=== PATIENT | female | born 1970 | race Caucasian/White ===

== ENCOUNTER → 2016-09-30 | Outpatient (CLI) | payer BC ==
--- NOTE | 2016-09-30 17:12 | CR ---
EXAMINATION: Right knee HISTORY: Pain COMPARISON: None TECHNIQUE: 4 views FINDINGS/IMPRESSION: There is no acute osseous abnormality, dislocation, or fracture identified. Bon e mineralization appears normal. There is likely a trace suprapatellar joint effusion.
== END ==
LOC: MW.CHORTHO 07:58
PROVIDERS: ATTEND Physician Assistant
DX: M25.561 Pain in right knee (principal)
CPT/HCPCS: 73564-26-RT; 73564-RT

== ENCOUNTER → 2016-10-08 | Outpatient (CLI) | payer BC ==
[2016-10-08 11:23] LABS: CHLORIDE,CL 107 mmol/L (98-110); SODIUM,NA 139 mmol/L (136-146)
--- NOTE | 2016-10-08 16:26 | MY ---
EXAMINATION: Bilateral digital mammography utilizing CAD. HISTORY: Screening exam. Comparison is made to previous studies dated 10/01/2015, 08/02/2014. FINDINGS: Bilateral heterogeneously dense breast tissue. No suspicious calcifications, masses or architectural distortions. No pathologic appearing lymph nodes, no abnormal skin thickening or nipple inversion. CAD highlighted regions appear normal at this time. IMPRESSION: BI-RADS category I - negative mammogram. Continued screening according to ACR-ACS guidelines sugg edith. THE FALSE-NEGATIVE RATE OF MAMMOGRAM IS APPROXIMATELY 10%. MANAGEMENT OF A PALPABLE ABNORMALITY MUST BE BASED UPON CLINICAL GROUNDS. SENSITIVITY FOR DETECTION OF ABNORMALITIES IN DENSE BREASTS IS LOW. NOTE: A letter will be sent to the patient regarding findings. [facility] -- DONALDO Goff [phone] - FAX [phone]
[2016-10-17 16:04] LABS: HPV 16 Not Detected (NOTDET); HPV 18 Not Detected (NOTDET)
== END ==
LOC: MW.MAM 11:03
PROVIDERS: ATTEND Nurse Practitioner Women's Health
DX: Z12.31 Encounter for screening mammogram for malignant neoplasm of breast (principal)
CPT/HCPCS: 36415; 80053; 80061; 81001; 83036; 84443; 85025; 86140; 87624; G0145; G0202; G0202-26

== ENCOUNTER 2017-05-29 21:21 | Inpatient (IN) | payer BC ==
--- NOTE | 2017-05-29 21:38 | EDM.PDOC ---
ED HPI GENERAL MEDICAL PROBLEM - General Stated Complaint: ABDOMINAL PAIN Time Seen by Provider: 05/29/17 21:38 Source of Information: Reports: Patient, Family History Limitations: Reports: No Limitations - History of Present Illness INITIAL COMMENTS - FREE TEXT/NARRATIVE: History of present illness: [47 yr old female comes in complaining of abdominal and back pain. Patient indicates she thinks it's a kidney stone as she has a history of these.] Review of systems: As per history of present illness and below otherwise all systems reviewed and negative. Past medical history: As per history of present illness and as reviewed below otherwise noncontributory. Surgical history: As per history of present illness and as reviewed below otherwise noncontributory. Social history: No reported history of drug or alcohol abuse. Family history: As per history of present illness and as reviewed below otherwise noncontributory. Physical exam: HEENT: Atraumatic, normocephalic, pupils reactive, negative for conjunctival pallor or scleral icterus, mucous membranes moist, throat clear, neck supple, nontender, trachea midline. Lungs: Clear to auscultation, breath sounds equal bilaterally, chest nontender. Heart: S1S2, regular, negative for clicks, rubs, or JVD. Abdomen: Soft, nondistended, diffuse non specific tenderness.. Negative for masses or hepatosplenomegaly. Positve for bilateral costovertebral tenderness. Pelvis: Stable nontender. Genitourinary: Deferred. Rectal: Deferred. Extremities: Atraumatic, negative for cords or calf pain. Neurovascular unremarkable. Neuro: Awake, alert, oriented. Cranial nerves II through XII unremarkable. Cerebellum unremarkable. Motor and sensory unremarkable throughout. Exam nonfocal. Patient has a significant leukocytosis per laboratory continues to have a significant amount of abdominal and back pain. Dr. Cristobal Navarro called and discussed the case decision made to admit patient for IV therapy, pain control and observation. For pyelonephritis. Diagnostics: [CBC, CMP, amylase, lipase, CT of abdomen and pelvis] Therapeutics: [IV fluid, morphine, Zofran] Impression: [Pylonephritis] Plan: [Admit to observation, IV therapy, pyelonephritis] Definitive disposition and diagnosis as appropriate pending reevaluation and review of above. Bilateral Flank Pain Score (Numeric/FACES): 8 - Related Data Allergies Allergy/AdvReac Type Severity Reaction Status Date / Time latex Allergy Itching Verified 05/29/17 21:41 Latex, Natural Rubber Allergy Itching Verified 05/29/17 21:41 Home Meds: Home Meds . [No Known Home Meds] 05/29/17 [History] Past Medical History - Past Health History Medical/Surgical History: Denies Medical/Surgical History Endocrine/Metabolic History: Reports: Diabetes, Gestational Social & Family History - Tobacco Use Smoking Status *Q: Never Smoker Second Hand Smoke Exposure: No - Alcohol Use Days Per Week of Alcohol Use: 0 - Recreational Drug Use Recreational Drug Use: No ED ROS GENERAL - Review of Systems Review Of Systems: See Below (See history of present illness) ED EXAM, GENERAL - Physical Exam Exam: See Below (History of present illness) Course - Vital Signs Last Recorded V/S: Last Vital Signs Temp 38.1 C 05/29/17 21:31 Pulse 103 H 05/29/17 21:31 Resp 18 05/29/17 21:31 BP 155/91 H 05/29/17 21:31 Pulse Ox 100 05/29/17 21:31 - Orders/Labs/Meds Orders: Active Orders 24 hr Category Date Time Status Abdomen Pelvis wo Cont [CT] Stat Exams 05/29/17 21:40 Taken CULTURE BLOOD [BC] Stat Lab 05/29/17 22:39 Received CULTURE BLOOD [BC] Stat Lab 05/29/17 22:43 Received UA W/MICROSCOPIC [URIN] Stat Lab 05/29/17 22:55 Uncollected Ciprofloxacin in D5W [Cipro in D5W 400 MG/200 ML] 400 Med 05/29/17 23:15 Ordered mg Premix Bag 1 bag IV Q12H Sodium Chloride 0.9% [Normal Saline] 1,000 ml Med 05/29/17 22:28 Active IV STAT Blood Culture x2 Reflex Set [OM.PC] Stat Oth 05/29/17 22:28 Ordered Medication Orders Sodium Chloride (Normal Saline) 1,000 mls @ 999 mls/hr IV STAT ONE Stop: 05/29/17 23:28 Last Admin: 05/29/17 23:03 Dose: 999 mls/hr Labs: Laboratory Tests 05/29/17 05/29/17 05/29/17 Range/Units 21:54 21:54 22:43 WBC 19.12 H (4.0-11.0) K/uL RBC 4.53 (4.30-5.90) M/uL Hgb 13.3 (12.0-16.0) g/dL Hct 40.1 (36.0-46.0) % MCV 88.5 (80.0-98.0) fL MCH 29.4 (27.0-32.0) pg MCHC 33.2 (31.0-37.0) g/dL RDW Std Deviation 48.1 (28.0-62.0) fl RDW Coeff of Aura 15 (11.0-15.0) % Plt Count 235 (150-400) K/uL MPV 10.80 (7.40-12.00) fL Neut % (Auto) 81.1 H (48.0-80.0) % Lymph % (Auto) 12.8 L (16.0-40.0) % [place] % (Auto) 5.6 (0.0-15.0) % Eos % (Auto) 0.2 (0.0-7.0) % Baso % (Auto) 0.3 (0.0-1.5) % Neut # (Auto) 15.5 H (1.4-5.7) K/uL Lymph # (Auto) 2.5 H (0.6-2.4) K/uL [place] # (Auto) 1.1 H (0.0-0.8) K/uL Eos # (Auto) 0.0 (0.0-0.7) K/uL Baso # (Auto) 0.1 (0.0-0.1) K/uL Nucleated RBC % 0.0 /100WBC Nucleated RBCs # 0 K/uL Lactate 1.3 (0.20-2.00) mmol/L Sodium 137 (136-146) mmol/L Potassium 3.7 (3.5-5.1) mmol/L Chloride 106 (98-110) mmol/L Carbon Dioxide 21 (21-31) mmol/L BUN 20 (6.0-23.0) mg/dL Creatinine 1.0 (0.6-1.5) mg/dL Est Cr Clr Drug Dosing 58.15 mL/min Estimated GFR (MDRD) 59.7 ml/min Glucose 103 (60-110) mg/dL Calcium 8.7 L (8.8-10.8) mg/dL Total Bilirubin 0.3 (0.1-1.5) mg/dL AST 20 (5-40) IU/L ALT 19 (8-54) IU/L Alkaline Phosphatase 84 (40-150) Total Protein 7.3 (6.0-8.0) g/dL Albumin 4.0 (3.5-5.0) g/dL Globulin 3.3 (2.0-3.5) g/dL Albumin/Globulin Ratio 1.2 L (1.3-2.8) Meds: Medications Generic Name Dose Route Start Last Admin Trade Name Freq PRN Reason Stop Dose Admin Sodium Chloride 1,000 mls @ 999 mls/hr 05/29/17 22:28 05/29/17 23:03 Normal Saline IV 05/29/17 23:28 999 mls/hr STAT ONE Administration Discontinued Medications Generic Name Dose Route Start Last Admin Trade Name Freq PRN Reason Stop Dose Admin Morphine Sulfate 4 mg 05/29/17 22:36 05/29/17 23:03 Morphine IVPUSH 05/29/17 22:37 4 mg ONETIME ONE Administration Ondansetron HCl 4 mg 05/29/17 22:36 05/29/17 23:03 Zofran IVPUSH 05/29/17 22:37 4 mg ONETIME ONE Administration Departure - Departure Time of Disposition: 23:09 Disposition: Refer to Observation Condition: Good Clinical Impression: Elevated white blood cell count, Pyelonephritis - Discharge Information Referrals: PCP,Unknown [Primary Care Provider] - - My Orders Last 24 Hours: My Active Orders 05/29/17 21:40 Abdomen Pelvis wo Cont [CT] Stat 05/29/17 22:28 Sodium Chloride 0.9% [Normal Saline] 1,000 ml IV STAT Blood Culture x2 Reflex Set [OM.PC] Stat 05/29/17 22:39 CULTURE BLOOD [BC] Stat 05/29/17 22:43 CULTURE BLOOD [BC] Stat 05/29/17 22:55 UA W/MICROSCOPIC [URIN] Stat 05/29/17 23:15 Ciprofloxacin in D5W [Cipro in D5W 400 MG/200 ML] 400 mg Premix Bag 1 bag IV Q12H - Assessment/Plan Last 24 Hours: My Active Orders 05/29/17 21:40 Abdomen Pelvis wo Cont [CT] Stat 05/29/17 22:28 Sodium Chloride 0.9% [Normal Saline] 1,000 ml IV STAT Blood Culture x2 Reflex Set [OM.PC] Stat 05/29/17 22:39 CULTURE BLOOD [BC] Stat 05/29/17 22:43 CULTURE BLOOD [BC] Stat 05/29/17 22:55 UA W/MICROSCOPIC [URIN] Stat 05/29/17 23:15 Ciprofloxacin in D5W [Cipro in D5W 400 MG/200 ML] 400 mg Premix Bag 1 bag IV Q12H
[2017-05-29] MEDS ORDERED: Sodium Chloride 0.9% 1,000 ML IV ONE (22:28)
[2017-05-29] MEDS ORDERED: Ondansetron 4 MG/2 ML SDV IVPUSH ONE (22:36)
[2017-05-29] MEDS ORDERED: Morphine 4 MG/ML Syringe IVPUSH ONE (22:36)
[2017-05-29] MEDS: Ciprofloxacin in D5W 400 MG in Premix Bag 1 BAG IV SCH ×2 (23:40)
[2017-05-30] MEDS ORDERED: FLU Vacc QS 2017-18 (36mos UP)/PF 60 MCG/0.5 ML Syringe IM ONE (00:30)
[2017-05-30] MEDS ORDERED: Ondansetron 4 MG Tab PO PRN (01:07)
[2017-05-30] MEDS: Sodium Chloride 0.9% 1,000 ML IV SCH ×3 (01:38→21:39)
[2017-05-30] MEDS: Acetaminophen 325 MG Tab PO PRN ×2 (03:41→10:43)
--- NOTE | 2017-05-30 06:43 | PCM.HP ---
H&P History of Present Illness - General Date of Service: 05/30/17 Admit Problem/Dx: pyelonephritis - History of Present Illness Initial Comments - Free Text/Narative: 47-year-old female presenting to emergency department with chief complaint of left back pain with no significant past medical history. Patient states that she has had back pain for several days and on day of admission states that she was having some nausea with low-grade fevers of 101. She has a history of kidney stones and thought that it may be secondary to this. States that the pain is constant mostly located on the left lower back with some radiation to the suprapubic area. As above, she has had some nausea without vomiting. She denies any chest pain, palpitations, shortness breath, syncopal episodes, or focal neurologic episodes. In the emergency department she was found to have leukocytosis of 19,000, unremarkable lactate and CMP. Urine positive for UTI, and CT abdomen and pelvis showing no renal stones or hydronephrosis. There was some subtle edema about the left kidney and renal collecting system suggesting possible pyelonephritis. Blood cultures were obtained. Patient admitted for suspected pyelonephritis. Bilateral Flank Pain Score (Numeric/FACES): 0 - Related Data Allergies/Adverse Reactions: Allergies Allergy/AdvReac Type Severity Reaction Status Date / Time latex Allergy Itching Verified 05/29/17 21:41 Latex, Natural Rubber Allergy Itching Verified 05/29/17 21:41 Home Medications: Home Meds . 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 Denies: Weakness, Fatigue HEENT: Denies: Headaches, Sore Throat, Visual Changes Pulmonary: Denies: Shortness of Breath, Wheezing, Cough Cardiovascular: Denies: Chest Pain, Palpitations, Edema Gastrointestinal: Reports: Abdominal Pain, Nausea, Vomiting. Denies: Black Stool, Bloody Stool, Distension Genitourinary: Reports: Dysuria, Pain, Flank Pain. Denies: Hematuria Musculoskeletal: Denies: Neck Pain, Leg Pain Skin: Denies: Cyanosis Psychiatric: Denies: Confusion Neurological: Denies: Confusion, Dizziness, Headache Hematologic/Lymphatic: Denies: Anemia Exam - Exam Exam: See Below - Vital Signs Vital Signs: Last Vital Signs Temp 99.1 F 05/29/17 23:42 Pulse 84 05/29/17 23:42 Resp 17 05/29/17 23:42 BP 144/82 H 05/29/17 23:42 Pulse Ox 97 05/29/17 23:42 Weight: 65.68 kg - Exam Quality Assessment: DVT Prophylaxis General: Alert, Oriented, Cooperative HEENT: Conjunctiva Clear, EACs Clear, EOMI, Hearing Intact, Mucosa Moist & [place] , Nares Patent, Normal Nasal Septum, Posterior Pharynx Clear, PERRLA Neck: Supple, Trachea Midline, 2 Lungs: Clear to Auscultation, Normal Respiratory Effort Cardiovascular: Regular Rate, Regular Rhythm, Normal S1, Normal S2 GI/Abdominal Exam: Normal Bowel Sounds, Soft, Non-Tender, No Organomegaly, No Distention Back Exam: CVA Tenderness (L) Extremities: Normal Inspection, Non-Tender, No Pedal Edema, Normal Capillary Refill Peripheral Pulses: 2+: Radial (L), Radial (R), Posterior Tibial (L), Posterior Tibial (R), Dorsalis Pedis (L), Dorsalis Pedis (R) Skin: Warm, Dry, Intact Neurological: Cranial Nerves Intact Neuro Extensive - Mental Status: Alert, Oriented x3, Normal Mood/Affect, Normal Cognition Neuro Extensive - Motor, Sensory, Reflexes: CN II-XII Intact Psychiatric: Alert, Normal Affect, Normal Mood - Patient Data Result Diagrams: 05/30/17 06:35 05/29/17 21:54 *Q Meaningful Use (ADM) - VTE *Q VTE Criteria *Q: - Stroke *Q Stroke Criteria *Q: - AMI *Q AMI Criteria *Q: - Problem List (1) Elevated white blood cell count SNOMED Code(s): 819716110 ICD Code: D72.829 - ELEVATED WHITE BLOOD CELL COUNT, UNSPECIFIED Status: Acute Priority: High Current Visit: Yes Qualifiers: Leukocytosis type: unspecified Qualified Code(s): D72.829 - Elevated white blood cell count, unspecified (2) Pyelonephritis SNOMED Code(s): 98674708 ICD Code: N12 - TUBULO-INTERSTITIAL NEPHRITIS, NOT SPCF ACUTE OR CHRONIC Status: Acute Priority: High Current Visit: Yes Problem List Initiated/Reviewed/Updated: Yes Orders Last 24hrs: Active Orders 24 hr Category Date Time Status Patient Status [ADT] Routine ADT 05/30/17 00:00 Active Regular Diet [DIET] Diet 05/30/17 Breakfast Active CBC WITH AUTO DIFF [HEME] Routine Lab 05/30/17 05:00 Ordered CMP [COMPREHENSIVE METABOLIC PN,CMP] [CHEM] Routine Lab 05/30/17 05:00 Ordered Acetaminophen [Tylenol] Med 05/30/17 01:06 Active 650 mg PO Q6H PRN Ondansetron [Zofran] Med 05/30/17 01:07 Active 4 mg PO Q4H PRN Sodium Chloride 0.9% [Normal Saline] 1,000 ml Med 05/30/17 01:15 Active IV ASDIRECTED Medication Orders Acetaminophen (Tylenol) 650 mg PO Q6H PRN PRN Reason: Pain/Fever Last Admin: 05/30/17 03:41 Dose: 650 mg Ciprofloxacin/Dextrose 400 mg/ (Premix) 200 mls @ 200 mls/hr IV Q12H [facility] Last Admin: 05/29/17 23:40 Dose: 200 mls/hr Sodium Chloride (Normal Saline) 1,000 mls @ 125 mls/hr IV ASDIRECTED [facility] Last Admin: 05/30/17 01:38 Dose: 125 mls/hr Ondansetron HCl (Zofran) 4 mg PO Q4H PRN PRN Reason: Nausea/Vomiting Assessment/Plan Comment:: 47-year-old female admitted 05/30/17 for suspected pyelonephritis with no significant past medical history. Pyelonephritis: Patient was started on ciprofloxacin in the emergency department we will continue this. Monitor leukocytosis 19k on admission. No fever. Will get renal ultrasound to confirm pyelonephritis. No stones seen on CT the patient does have history of renal calculi. Urine positive for UTI. Culture sent. Blood cultures collected in ED. VTE: Lovenox, SCD Dispo: 1-2 days pending.
[2017-05-30] MEDS ORDERED: Acetaminophen/HYDROcodone 325-5 MG Tab PO PRN (07:21)
[2017-05-30] MEDS ORDERED: Temazepam 15 MG Cap PO PRN (07:21)
[2017-05-30] MEDS ORDERED: Ondansetron 4 MG Tab.DIS PO PRN (07:21)
[2017-05-30 07:30] LABS: CHLORIDE,CL 107 mmol/L (98-110); SODIUM,NA 137 mmol/L (136-146)
[2017-05-30] MEDS: Enoxaparin 40 MG/0.4 ML Syringe SUBCUT SCH (10:30)
[2017-05-30] MEDS: Ciprofloxacin in D5W 400 MG in Premix Bag 1 BAG IV SCH ×4 (10:30→23:40)
[2017-05-31 05:23] LABS: CHLORIDE,CL 109 mmol/L (98-110); SODIUM,NA 139 mmol/L (136-146)
[2017-05-31] MEDS: Sodium Chloride 0.9% 1,000 ML IV SCH (06:46)
--- NOTE | 2017-05-31 08:14 | PCM.DCSUM1 ---
Discharge Summary - Hospital Course HPI Initial Comments: 47-year-old female admitted 05/30/17 for pyelonephritis with history of renal calculi. Brief History: Patient initially stated that she had back pain for several days and on day of admission stated that she was having some nausea with low-grade fevers of 101. She has a history of kidney stones and thought that it may be secondary to this. Stated that the pain was constant mostly located on the left lower back with some radiation to the suprapubic area. As above, had some nausea without vomiting. She denied any chest pain, palpitations, shortness breath, syncopal episodes, or focal neurologic episodes. - Discharge Data Discharge Date: 05/31/17 Discharge Disposition: Home, Self-Care 01 Condition: Good - Discharge Diagnosis/Problem(s) (1) Elevated white blood cell count SNOMED Code(s): 782449907 ICD Code: D72.829 - ELEVATED WHITE BLOOD CELL COUNT, UNSPECIFIED Status: Acute Priority: High Qualifiers: Leukocytosis type: unspecified Qualified Code(s): D72.829 - Elevated white blood cell count, unspecified (2) Pyelonephritis SNOMED Code(s): 52392733 ICD Code: N12 - TUBULO-INTERSTITIAL NEPHRITIS, NOT SPCF ACUTE OR CHRONIC Status: Acute Priority: High - Patient Instructions Diet: Usual Diet as Tolerated Activity: Rest and Relax Today Driving: Do Not Drive Showering/Bathing: May Shower Notify Provider of: Fever, Increased Pain, Nausea and/or Vomiting - Discharge Plan Prescriptions/Med Rec: Ciprofloxacin HCl [Cipro] 500 mg PO BID #14 tablet Home Medications: Home Meds Ciprofloxacin HCl [Cipro] 500 mg PO BID #14 tablet 05/31/17 [Rx] Patient Handouts: Pyelonephritis, Adult, [id number], Ciprofloxacin tablets Referrals: PCP,Unknown [Primary Care Provider] - (Please call the clinic on Thursday to set- up a hospital follow-up appointment if possible earlier than the .) - Discharge Summary/Plan Comment DC Time >30 min.: Yes Discharge Summary/Plan Comment: 47-year-old female admitted 05/30/17 for pyelonephritis with history of renal calculi. Patient initially stated that she had back pain for several days and on day of admission stated that she was having some nausea with low-grade fevers of 101. She has a history of kidney stones and thought that it may be secondary to this. Stated that the pain was constant mostly located on the left lower back with some radiation to the suprapubic area. As above, had some nausea without vomiting. She denied any chest pain, palpitations, shortness breath, syncopal episodes, or focal neurologic episodes. In the emergency department she was found to have leukocytosis of 19,000, unremarkable lactate and CMP. Urine positive for UTI, and CT abdomen and pelvis showing no renal stones or hydronephrosis. There was some subtle edema about the left kidney and renal collecting system suggesting possible pyelonephritis. Blood cultures were obtained. Patient was admitted for acute pyelonephritis and placed on ciprofloxacin IV. Patient remained afebrile for greater than 24 hours before discharge. Renal ultrasound was also performed showing no hydronephrosis and a relatively small, scarred left kidney with normal right kidney. Patient did well throughout her stay blood cultures remain negative. She was discharged in good condition with follow-up with a local PCP as well as a prescription for an additional 7 days of ciprofloxacin 500 mg by mouth twice a day and Zofran for any future nausea. She was instructed to return to the emergency department if she had any return of her symptoms including but not limited to fever, nausea, vomiting, worsening flank pain. - General Info Date of Service: 05/31/17 Admission Dx/Problem (Free Text: pyelonephritis Subjective Update: Patient feeling much better this am. Still some mild left flank pain but greatly improved. No fevers, chills, nausea, or vomiting. Would like to be discharged. - Review of Systems General: Denies: Fever, Weakness, Fatigue HEENT: Denies: Headaches, Visual Changes Pulmonary: Denies: Shortness of Breath, Hemoptysis Cardiovascular: Denies: Chest Pain, Palpitations, Edema Gastrointestinal: Denies: Abdominal Pain, Diarrhea, Nausea, Vomiting Genitourinary: Denies: Dysuria, Hematuria Musculoskeletal: Denies: Neck Pain, Leg Pain Skin: Denies: Cyanosis Neurological: Denies: Confusion, Dizziness Psychiatric: Denies: Confusion - Patient Data Vitals - Most Recent: Last Vital Signs Temp 98.5 F 05/31/17 04:00 Pulse 76 05/31/17 04:00 Resp 14 05/31/17 04:00 BP 133/77 05/31/17 04:00 Pulse Ox 98 05/31/17 04:00 Weight - Most Recent: 65.68 kg I&O - Last 24 hours: Intake & Output 05/30/17 05/31/17 05/31/17 22:59 06:59 14:59 Intake Total 1672 2056 Output Total 900 1400 Balance 771 656 Lab Results - Last 24 hrs: Laboratory Results - last 24 hr 05/31/17 05/31/17 Range/Units 04:25 04:25 WBC 12.57 H (4.0-11.0) K/uL RBC 3.94 L (4.30-5.90) M/uL Hgb 11.3 L (12.0-16.0) g/dL Hct 35.1 L (36.0-46.0) % MCV 89.1 (80.0-98.0) fL MCH 28.7 (27.0-32.0) pg MCHC 32.2 (31.0-37.0) g/dL RDW Std Deviation 49.8 (28.0-62.0) fl RDW Coeff of Aura 15 (11.0-15.0) % Plt Count 212 (150-400) K/uL MPV 11.10 (7.40-12.00) fL Neut % (Auto) 62.8 (48.0-80.0) % Lymph % (Auto) 27.2 (16.0-40.0) % [place] % (Auto) 8.5 (0.0-15.0) % Eos % (Auto) 1.1 (0.0-7.0) % Baso % (Auto) 0.4 (0.0-1.5) % Neut # (Auto) 7.9 H (1.4-5.7) K/uL Lymph # (Auto) 3.4 H (0.6-2.4) K/uL [place] # (Auto) 1.1 H (0.0-0.8) K/uL Eos # (Auto) 0.1 (0.0-0.7) K/uL Baso # (Auto) 0.1 (0.0-0.1) K/uL Nucleated RBC % 0.0 /100WBC Nucleated RBCs # 0 K/uL Sodium 139 (136-146) mmol/L Potassium 3.7 (3.5-5.1) mmol/L Chloride 109 (98-110) mmol/L Carbon Dioxide 24 (21-31) mmol/L BUN 10 (6.0-23.0) mg/dL Creatinine 0.6 (0.6-1.5) mg/dL Est Cr Clr Drug Dosing 96.92 mL/min Estimated GFR (MDRD) > 60.0 ml/min Glucose 100 (60-110) mg/dL Calcium 8.0 L (8.8-10.8) mg/dL Med Orders - Current: Current Medications Acetaminophen (Tylenol) 650 mg PO Q6H PRN PRN Reason: Pain/Fever Last Admin: 05/30/17 10:43 Dose: 650 mg Hydrocodone Bitart/Acetaminophen ([place] 325-5 Mg) 1 tab PO Q4H PRN PRN Reason: Pain (moderate 4-6) Last Admin: 05/30/17 21:39 Dose: 1 tab Enoxaparin Sodium (Lovenox) 40 mg SUBCUT DAILY [facility] Last Admin: 05/30/17 10:30 Dose: 40 mg Ciprofloxacin/Dextrose 400 mg/ (Premix) 200 mls @ 200 mls/hr IV Q12H [facility] Last Admin: 05/30/17 23:40 Dose: 200 mls/hr Sodium Chloride (Normal Saline) 1,000 mls @ 125 mls/hr IV ASDIRECTED [facility] Last Admin: 05/31/17 06:46 Dose: 125 mls/hr Ondansetron HCl (Zofran) 4 mg PO Q4H PRN PRN Reason: Nausea/Vomiting Ondansetron HCl (Zofran Odt) 4 mg PO Q4H PRN PRN Reason: nausea, able to take PO Last Admin: 05/30/17 11:45 Dose: 4 mg Temazepam (Restoril) 15 mg PO BEDTIME PRN PRN Reason: Sleep Discontinued Medications Sodium Chloride (Normal Saline) 1,000 mls @ 999 mls/hr IV STAT ONE Stop: 05/29/17 23:28 Last Admin: 05/29/17 23:03 Dose: 999 mls/hr Influenza Virus Vaccine (Pharmacy To Dose - Influenza Vaccine) 1 each IM ONETIME ONE Stop: 05/30/17 00:10 Influenza Virus Vaccine (Fluarix Quad [id number]) 60 mcg IM .ONCE ONE Stop: 05/30/17 00:31 Morphine Sulfate (Morphine) 4 mg IVPUSH ONETIME ONE Stop: 05/29/17 22:37 Last Admin: 05/29/17 23:03 Dose: 4 mg Ondansetron HCl (Zofran) 4 mg IVPUSH ONETIME ONE Stop: 05/29/17 22:37 Last Admin: 05/29/17 23:03 Dose: 4 mg - Exam Quality Assessment: Reports: DVT Prophylaxis General: Reports: Alert, Oriented, Cooperative, No Acute Distress HEENT: Reports: Pupils Equal, Pupils Reactive, EOMI, Mucous Membr. Moist/Friendly Neck: Reports: Supple, Trachea Midline Lungs: Reports: Clear to Auscultation, Normal Respiratory Effort Cardiovascular: Reports: Regular Rate, Regular Rhythm, No Murmurs GI/Abdominal Exam: Normal Bowel Sounds, Soft, Non-Tender, No Organomegaly, No Distention Back Exam: Reports: Normal Inspection, CVA Tenderness (L) Extremities: Normal Inspection, Non-Tender, No Pedal Edema, Normal Capillary Refill Skin: Reports: Warm, Dry, Intact Wound/Incisions: Reports: Healing Well Neurological: Reports: No New Focal Deficit Psy/Mental Status: Reports: Alert, Normal Affect, Normal Mood *Q Meaningful Use (DIS) - VTE *Q VTE Criteria *Q: - Stroke *Q Stroke Criteria *Q: - AMI *Q AMI Criteria *Q:
[2017-05-31] MEDS ORDERED: Calcium Carbonate 500 MG Tab.Chew PO ONE (08:54)
[2017-05-31] MEDS: Enoxaparin 40 MG/0.4 ML Syringe SUBCUT SCH (08:56)
[2017-05-31 08:58] VITALS: BP 148/77
[2017-05-31] MEDS: Ciprofloxacin in D5W 400 MG in Premix Bag 1 BAG IV SCH ×2 (10:24)
--- NOTE | 2017-06-01 09:37 | CT ---
EXAM DATE: 05/30/17 PATIENT'S AGE: 47 Patient: ANAYELI WILLIAMSON Facility: [place], [place] Site . Site : 1970 Study: CT Abdomen/Pelvis W JENNA [id number]/5/2018 10:19:28 PM Ordering Physician: Doctor Rivera Final Report: INDICATION: Bilateral flank pain x1 week with vomiting, chills and fever. TECHNIQUE: CT abdomen and pelvis without contrast. COMPARISON: None. FINDINGS: LOWER CHEST: Unremarkable. LIVER: Normal in size and attenuation. No masses. GALLBLADDER AND BILE DUCTS: No stones or inflammation. No biliary dilatation. PANCREAS: Unremarkable. No mass or inflammation. SPLEEN: Normal in size. No masses. ADRENAL GLANDS: Normal in size. No nodules. KIDNEYS: No renal stones and no hydronephrosis. There is severe left renal scarring. Subtle edema is present about the left kidney and collecting system. Normal right kidney. GI TRACT: Unremarkable. Normal in caliber. No sign of mass or inflammation. VASCULATURE: Unremarkable. LYMPH NODES: No lymphadenopathy. OMENTUM/PERITONEUM/ABDOMINAL WALL: Unremarkable. No sign of mass or infiltration. No free air or significant free fluid. PELVIS: Unremarkable. No pelvic masses. BONES: Unremarkable for age. IMPRESSION: No renal stones and no hydronephrosis. Subtle edema about the left kidney and renal collecting system suggests the possibility of pyelonephritis. Remainder of the exam is unremarkable. Dictated by Los Aviles MD @ 05/29/2017 10:36:48 PM Please note that all CT scans at this facility use dose modulation, iterative reconstruction, and/or weight-based dosing when appropriate to reduce radiation dose to as low as reasonably achievable. Dictated by: Los Aviles MD @ 05/29/2017 22:36:54 (Electronic Signature) Report Signed by Proxy. [facility]
--- NOTE | 2017-06-01 10:06 | US ---
EXAM DATE: 05/30/17 PATIENT'S AGE: 47 Patient: ANAYELI WILLIAMSON Facility: [place], [place] Site . Site : 1970 Study: US Abdomen [id number]/6/2018 9:41:30 AM Ordering Physician: Ramon Jain Final Report: INDICATION: Pyelonephritis. TECHNIQUE: Conventional two-dimensional grayscale ultrasound of the kidneys and bladder. COMPARISON: Abdomen/pelvis CT of 05/29/2017. FINDINGS: A relatively small, scarred left kidney is again demonstrated. The right kidney is normal. No hydronephrosis is evident. The bladder is grossly negative. IMPRESSION: Relatively small, scarred left kidney and normal right kidney. Dictated by Mickey Clark MD @ May 30 2017 10:15AM (Electronic Signature) Report Signed by Proxy. SANDI
== END 2017-05-31 13:27 | disposition home or self-care (01) | DRG 463 ==
LOC: MW.ED 21:21 → MW.MS 23:30 → OBSVTOIN 05-30 07:21
PROVIDERS: ADMIT Family Medicine; ATTEND Family Medicine
DX: N12 Tubulo-interstitial nephritis, not specified as acute or chronic (principal); D72.829 Elevated white blood cell count, unspecified; Z91.040 Latex allergy status
CPT/HCPCS: 36415; 74176; 74176-26; 76775; 76775-26; 80048; 80053; 81001; 83605; 85025; 87040; 87086; 87088; 87186; 90686; 96361; 96374; 96375; 99284; 99285-25; A9270-GY; J0744; J1650; J2270; J2405; J7040